=== PATIENT | male | born 1950 | race American Indian/Alaskan Native ===

== ENCOUNTER 2019-05-10 10:24 | Emergency (ER) | payer MEDICARE ==
[2019-05-10] MEDS ORDERED: SODIUM CHLORIDE 0.9% 250ML 250 ML IV ONE (11:10)
--- NOTE | 2019-05-10 11:11 | Emergency Department Report ---
ED General Adult HPI - General Chief complaint: Weakness Stated complaint: WEAKNESS Time Seen by Provider: 05/10/19 10:53 Source: patient, RN notes reviewed, old records reviewed Mode of arrival: Stretcher Limitations: No Limitations - History of Present Illness Initial comments: Primary care Dr.: Dr. Luiz Sarabia Cardiology: Dr. Trejo This is a pleasant 69-year-old gentleman. This patient is not known to this provider previously. He is on chronic systemic anticoagulation, has a history of chronic back pain, A. fib The patient recently had elective outpatient spinal fusion performed a few weeks ago. He is currently performing outpatient physical therapy. He presents to the ER today with a complaint of transient lightheadedness/dizziness. This is painless. This is while he was doing physical therapy. It is now resolved. He denies physical pain at this time. He denies hematemesis and bright red blood per rectum. As far as she knows, he's not had any new or different medications. Blood pressure medications include Norvasc, 10 mg daily, and metoprolol, 25 mg twice daily. He denies urinary symptoms. He denies DVT and pulmonary embolism risk factors. There is no new or different back pain, and there is no abdominal pain. -: Sudden Consistency: now resolved Improves with: movement Worsens with: none Associated Symptoms: denies other symptoms - Related Data Home Medications Medication Instructions Recorded Confirmed Last Taken Gabapentin [Neurontin] 300 mg PO Q8HR 12/13/17 05/10/19 05/09/19 300 metFORMIN 500 unit PO BID 12/13/17 05/10/19 05/09/19 1000 Atorvastatin 80 mg PO QDAY 05/10/19 05/10/19 05/09/19 Calcium Citrate 500 mg PO QDAY 05/10/19 05/10/19 05/09/19 Metoprolol Tartrate 650 mg PO QDAY 05/10/19 05/10/19 05/09/19 Tylenol 650 mg PO QDAY 05/10/19 05/10/19 05/09/19 Vitamin D3 2,000 UNIT CAP 2,000 unit PO QDAY 05/10/19 05/10/19 05/09/19 Xarelto 20 mg PO QDAY 05/10/19 05/10/19 05/09/19 amLODIPine 10 mg PO QDAY 05/10/19 05/10/19 05/09/19 10 tiZANidine 4 mg PO Q8HR PRN 05/10/19 05/10/19 05/09/19 Allergies Allergy/AdvReac Type Severity Reaction Status Date / Time No Known Allergies Allergy Unverified 12/13/17 03:37 ED Review of Systems ROS: Stated complaint: WEAKNESS Other details as noted in HPI Constitutional: denies: fever Eyes: denies: eye discharge ENT: denies: congestion Respiratory: denies: wheezing Cardiovascular: denies: chest pain, syncope Gastrointestinal: denies: nausea, vomiting, hematemesis, melena, hematochezia Genitourinary: denies: urgency, dysuria Musculoskeletal: back pain (chronic) Neurological: denies: weakness Hematological/Lymphatic: denies: easy bleeding ED Past Medical Hx - Past Medical History Previous Medical History?: Yes Hx Hypertension: Yes Hx Congestive Heart Failure: Yes Hx Diabetes: Yes Hx GERD: Yes Hx Arthritis: Yes Hx Asthma: No Hx COPD: No Additional medical history: hyperlipidemia, atrial fibrillation - Surgical History Past Surgical History?: Yes Additional Surgical History: lumbar, 2000, right hand - Social History Smoking Status: Former Smoker Substance Use Type: Alcohol - Medications Home Medications: Home Medications Medication Instructions Recorded Confirmed Last Taken Type Gabapentin [Neurontin] 300 mg PO Q8HR 12/13/17 05/10/19 05/09/19 History 300 metFORMIN 500 unit PO BID 12/13/17 05/10/19 05/09/19 History 1000 Atorvastatin 80 mg PO QDAY 05/10/19 05/10/19 05/09/19 History Calcium Citrate 500 mg PO QDAY 05/10/19 05/10/19 05/09/19 History Metoprolol Tartrate 650 mg PO QDAY 05/10/19 05/10/19 05/09/19 History Tylenol 650 mg PO QDAY 05/10/19 05/10/19 05/09/19 History Vitamin D3 2,000 UNIT CAP 2,000 unit PO QDAY 05/10/19 05/10/19 05/09/19 History Xarelto 20 mg PO QDAY 05/10/19 05/10/19 05/09/19 History amLODIPine 10 mg PO QDAY 05/10/19 05/10/19 05/09/19 History 10 tiZANidine 4 mg PO Q8HR PRN 05/10/19 05/10/19 05/09/19 History ED Physical Exam - General Limitations: No Limitations General appearance: alert, in no apparent distress - Head Head exam: Present: atraumatic, normocephalic - Eye Eye exam: Present: normal appearance, EOMI. Absent: nystagmus - ENT ENT exam: Present: normal exam, normal orophraynx, mucous membranes moist, normal external ear exam - Neck Neck exam: Present: normal inspection, full ROM. Absent: tenderness, meningismus - Respiratory Respiratory exam: Present: normal lung sounds bilaterally. Absent: respiratory distress - Cardiovascular Cardiovascular Exam: Present: bradycardia, irregular rhythm, normal heart sounds. Absent: tachycardia, systolic murmur, diastolic murmur, rubs, gallop - GI/Abdominal GI/Abdominal exam: Present: soft, normal bowel sounds. Absent: distended, tenderness, guarding, rebound, rigid, pulsatile mass - Rectal Rectal exam: Present: normal inspection, other (chaperoned by charlie atwood). Absent: black stool, bloody stool - Extremities Exam Extremities exam: Present: normal inspection, full ROM, other (2+ pulses noted in the bilateral upper, lower extremities. There is no long bone tenderness. Musculoskeletal compartments are soft. The pelvis is stable.). Absent: pedal edema, joint swelling, calf tenderness - Back Exam Back exam: Present: normal inspection, full ROM. Absent: tenderness, CVA tenderness (R), CVA tenderness (L), paraspinal tenderness, vertebral tenderness - Neurological Exam Neurological exam: Present: alert (there is no past-pointing. There is normal [id number]. There is a negative pronator drift. There is a steady gait), oriented X3, normal gait, other (there is no facial droop. The tongue is midline. Extraocular movements are intact bilaterally. Patient speaking in full complete sentences. Shoulder shrug is intact bilaterally. Hearing is grossly intact bilaterally. Visual acuity intact to finger counting and color perception at a close distance. 5/5 strength 4 extremities. Sensation intact to light touch in 4 extremities.). Absent: motor sensory deficit - Psychiatric Psychiatric exam: Present: normal affect, normal mood - Skin Skin exam: Present: warm, dry, intact, normal color. Absent: rash ED Course Vital Signs 11/26/19 11/26/19 11/26/19 10:55 11:01 11:02 Temperature 97.7 F Pulse Rate 60 Respiratory 14 Rate Blood Pressure 106/33 Blood Pressure 106/38 [Right] O2 Sat by Pulse 97 100 100 Oximetry 05/10/19 05/10/19 05/10/19 11:37 11:45 12:00 Temperature Pulse Rate 50 L 59 L 52 L Respiratory 12 13 12 Rate Blood Pressure 106/33 106/33 104/50 Blood Pressure [Right] O2 Sat by Pulse 100 100 Oximetry 05/10/19 05/10/19 05/10/19 12:15 12:31 12:45 Temperature Pulse Rate 65 51 L 60 Respiratory 17 18 17 Rate Blood Pressure 104/50 104/50 104/50 Blood Pressure [Right] O2 Sat by Pulse 98 99 99 Oximetry 05/10/19 05/10/19 05/10/19 13:01 13:15 13:43 Temperature Pulse Rate 62 64 57 L Respiratory 17 17 16 Rate Blood Pressure 107/59 107/59 104/50 Blood Pressure [Right] O2 Sat by Pulse 100 98 98 Oximetry 05/10/19 05/10/19 05/10/19 13:45 14:00 14:15 Temperature Pulse Rate 59 L 59 L 57 L Respiratory 21 17 20 Rate Blood Pressure 104/50 114/57 114/57 Blood Pressure [Right] O2 Sat by Pulse 98 97 98 Oximetry - Reevaluation(s) Reevaluation #1: 05/10/19 12:44 Torrential diagnosis, including but not limited to: Orthostasis, vagal event, structural cardiac disease, retroperitoneal bleed, AAA, deconditioning, medication side effects Assessment and plan: Pleasant 69-year-old gentleman with complaint of transient dizziness, nonspecific, described as lightheadedness, while doing physical therapy, lasted around 5 minutes. The patient is afebrile with reassuring vital signs, and does not appear to be in any acute distress. Physical examination and neurologic examination are benign and unremarkable. He walks with a steady gait. He is on systemic anticoagulation, not tachycardic, tachypneic, and or hypoxic, therefore, pulmonary embolism is very unlikely. This is most likely multifactorial, including patient's chronic structural cardiac disease, and there may be a medication component as well as he is on a beta alise, calcium channel alise, narcotic therapy, and tinazidine Noncontrast CT scan of the brain pending, noncontrast CT scan of the abdomen pelvis pending, laboratory studies reviewed and appreciated, fluids ordered, Kayexalate ordered, urinalysis pending. This is unlikely to be significant symptomatic bradycardia, as the patient has an appropriate blood pressure, and is mentating appropriately. Reevaluation #2: 05/10/19 14:[address] scan of the brain is negative for acute disease. CT scan abdomen pelvis shows no significant emergent findings. Patient making multiple requests ago. Repeat basic metabolic panel pending at this time. Reevaluation #3: 05/10/19 14:40 Patient making multiple requests to be discharged. He is resting comfortably and in no acute distress. No episodes of hypotension. Hyperkalemia improved. We will discharge the patient. ED Medical Decision Making - Lab Data Result diagrams: 05/10/19 11:14 05/10/19 14:05 Vital Signs 05/10/19 11:02 Temperature 97.7 F Pulse Rate 60 Respiratory 14 Rate Blood Pressure 106/38 [Right] O2 Sat by Pulse 100 Oximetry Lab Results 05/10/19 05/10/19 05/10/19 Range/Units 11:14 11:14 11:14 WBC 6.5 (4.5-11.0) K/mm3 RBC 4.35 (3.65-5.03) M/mm3 Hgb 12.3 (11.8-15.2) gm/dl Hct 36.9 (35.5-45.6) % MCV 85 (84-94) fl MCH 28 (28-32) pg MCHC 33 (32-34) % RDW 15.1 (13.2-15.2) % Plt Count 516 H (140-440) K/mm3 PT 19.8 H (12.2-14.9) Sec. INR 1.71 H (0.87-1.13) Sodium 135 L (137-145) mmol/L Potassium 5.3 H (3.6-5.0) mmol/L Chloride 99.3 (98-107) mmol/L Carbon Dioxide 19 L (22-30) mmol/L Anion Gap 22 mmol/L BUN 19 (9-20) mg/dL Creatinine 1.3 (0.8-1.5) mg/dL Estimated GFR > 60 ml/min BUN/Creatinine Ratio 15 % Glucose 205 H (75-100) mg/dL Calcium 9.9 (8.4-10.2) mg/dL Magnesium 2.20 (1.7-2.3) mg/dL Total Bilirubin 0.80 (0.1-1.2) mg/dL AST 33 (5-40) units/L ALT 30 (7-56) units/L Alkaline Phosphatase 110 (35-129) units/L Total Creatine Kinase 75 (55-170) units/L Total Protein 6.8 (6.3-8.2) g/dL Albumin 3.9 (3.9-5) g/dL Albumin/Globulin Ratio 1.3 % - EKG Data -: EKG Interpreted by Me - EKG Data 05/10/19 12:46 The EKG shows motion artifact, there is atrial fibrillation, bradycardic rate, low voltage, nonspecific T-wave abnormalities, the EKG is abnormal, nonspecific changes when compared to prior EKG, it is not consistent with ST elevation myocardial infarction. There is no endorsement of chest pain at this time. - Radiology Data Radiology results: pending Critical care attestation.: If time is entered above; I have spent that time in minutes in the direct care of this critically ill patient, excluding procedure time. ED Disposition Clinical Impression: History of dizziness, Anticoagulated Disposition: DC-01 TO HOME OR SELFCARE Is pt being admited?: No Does the pt Need Aspirin: No Condition: Stable Additional Instructions: Recommend patient follow up with his outpatient primary care doctor or netbackup engineer within the next week. Recommend that patient not take sedating medication, tinazadine Patient may continue current outpatient medications otherwise. Return to the emergency room right away with projectile vomiting, change in mental status, confusion, inability to tolerate liquid feeds, new, worsened or different symptoms not present on the initial emergency room evaluation. Please make certain to adhere to a cardiac family/appropriate diet, and limit salt and water intake. Referrals: [facility] [Provider Group] - 3-5 Days
[2019-05-10 11:47] LABS: Hematocrit 36.9 % (35.5-45.6); Hemoglobin 12.3 gm/dl (11.8-15.2); Mean Corpuscular HGB Conc 33 % (32-34); Mean Corpuscular Volume 85 fl (84-94); Platelet Count 516 K/mm3 (140-440); Red Blood Count 4.35 M/mm3 (3.65-5.03); Red Cell Distribution Width 15.1 % (13.2-15.2)
[2019-05-10 11:54] LABS: INR 1.71 (0.87-1.13)
[2019-05-10 12:29] LABS: Albumin 3.9 g/dL (3.9-5); BUN/Creatinine Ratio 15; Blood Urea Nitrogen 19 mg/dL (9-20); Calcium 9.9 mg/dL (8.4-10.2); Hemolysis Index 91
[2019-05-10 12:35] LABS: Alanine Aminotransferase 30 units/L (7-56)
[2019-05-10] MEDS ORDERED: SODIUM POLYSTYRENE 15 GM/60 ML ORAL LIQD PO ONE (12:38)
[2019-05-10 13:13] LABS: Bilirubin,Urine NEG (Negative); Blood,Urine NEG (Negative); Color,Urine Yellow (Yellow); Mucus,Urine 3+ /HPF
--- NOTE | 2019-05-10 13:56 | Cat Scan Report ---
CT HEAD WITHOUT CONTRAST INDICATION / CLINICAL INFORMATION: Dizziness, near syncope for 3 days. TECHNIQUE: Axial imaging performed from the skull apex through the skull base without the use of cont rast. Sagittal and coronal reformatted images. All CT scans at this location are performed using CT dose reduction for ALARA by means of automated exposure control. COMPARISON: None available. FINDINGS: CEREBRAL PARENCHYMA: No significant abnormality. No acute territorial infarct. HEMORRHAGE: None. EXTRA-AXIAL SPACES: Normal in size and morphology for the patient's age. VENTRICULAR SYSTEM: Normal in size and morphology for the patient's age. MIDLINE SHIFT OR HERNIATION: None. CEREBELLUM / BRAINSTEM: No significant abnormality. CALVARIUM: No significant abnormality. ORBITS: Normal as visualized. PARANASAL SINUSES / MASTOID AIR CELLS: Normal as visualized. SOFT TISSUES of HEAD: No significant abnormality. ADDITIONAL FINDINGS: None. IMPRESSION: No acute intracranial abnormality. Signer Name: Reynaldo Bates Jr, MD Signed: 05/10/2019 1:52 PM Workstation Name: [id number]
--- NOTE | 2019-05-10 14:16 | Cat Scan Report ---
CT scan of the abdomen and pelvis without contrast INDICATION: Dizzy, near syncope. TECHNIQUE: All CT scans at this location are performed using the following dose modulation technique: Automated exposure control. Helical slices were obtained through the abdomen and pelvis. No contrast is adminis tered. COMPARISON: None available FINDINGS: Abdomen: No acute abnormality is seen in the lung bases. Heart is enlarged. No acute abnormality is s een in the liver, spleen, pancreas, adrenal glands, or kidneys. No renal or ureteral calculi are seen . There is no hydronephrosis. There is cholelithiasis. There is no obstruction, inflammation, or free air. The appendix is unremarkable. Atherosclerotic calcifications are noted in the aorta and iliac arteries. Postoperative changes are noted in the lumbar spine. There is mild nonspecific thickening of the inferior aspect of the posterior pararenal fascia on the left Pelvis: There is atherosclerotic calcification. There is no free air or fluid. There are no abnormal collections. On review of bone windows, no acute osseous abnormalities are seen. Postoperative changes are noted s jonny. IMPRESSION: 1. There is no obstruction, inflammation, or free air. There are no abnormal fluid collections. There is mild thickening of the inferior aspect of the left posterior pararenal fascia. This is nonsp ecific Signer Name: Kyler Kessler MD Signed: 05/10/2019 2:12 PM Workstation Name: [id number]
[2019-05-10 14:26] VITALS: BP 114/57
[2019-05-10 14:37] LABS: BUN/Creatinine Ratio 17; Blood Urea Nitrogen 20 mg/dL (9-20); Calcium 9.7 mg/dL (8.4-10.2); Hemolysis Index 20
== END 2019-05-10 15:31 | disposition home or self-care (01) ==
LOC: ED 10:24
DX: R53.1 Weakness (principal); I11.0 Hypertensive heart disease with heart failure; I50.9 Heart failure, unspecified; E11.9 Type 2 diabetes mellitus without complications; K21.9 Gastro-esophageal reflux disease without esophagitis; M19.90 Unspecified osteoarthritis, unspecified site; Z87.891 Personal history of nicotine dependence; Z79.899 Other long term (current) drug therapy; G89.29 Other chronic pain
CPT/HCPCS: 36415; 70450; 74176; 80048; 80053; 81001; 82550; 83735; 85027; 85610; 93005; 93010